=== PATIENT | female | born 1980 | race Caucasian/White ===

== ENCOUNTER 2020-07-03 10:09 | Day surgery (SDC) | payer BC, SELFPAY ==
[2020-06-26 17:28] LABS: BASOPHILS # (AUTO) 0.1 K/uL (0.0-0.2); BASOPHILS % (AUTO) 0.8 % (0.0-2.0); EOSINOPHILS # (AUTO) 0.1 K/uL (0.0-0.4); EOSINOPHILS % (AUTO) 1.4 % (0.0-4.0); HEMATOCRIT 33.3 % (36-48); HEMOGLOBIN 10.3 g/dL (12.0-16.0); LYMPHOCYTES % (AUTO) 25.6 % (20.5-51.5); MEAN CORPUSCULAR HEMOGLOBIN 25 pg (27-31); MEAN CORPUSCULAR HGB CONC 31 % (32-36); MEAN CORPUSCULAR VOLUME 81 fL (79.0-98.0); MONOCYTES # (AUTO) 0.7 K/uL (0.0-1.0); MONOCYTES % (AUTO) 9.2 % (1.7-9.3); PLATELET COUNT (AUTO) 379 K/uL (130-430); RED BLOOD CELL COUNT(AUTO) 4.09 MIL/uL (4.2-6.2); RED CELL DISTRIBUTION WIDTH 19.6 % (9.0-15.0)
[2020-06-26 17:46] LABS: BILIRUBIN,URINE 1+ (NEGATIVE); BLOOD, URINE NEGATIVE (NEGATIVE); COLOR,URINE YELLOW (YELLOW); GLUCOSE,URINE NEGATIVE (NEGATIVE); KETONES,URINE TRACE (NEGATIVE); LEUKOCYTE ESTERASE ,URINE NEGATIVE (NEGATIVE); NITRITE, URINE NEGATIVE (NEGATIVE); PROTEIN URINE NEGATIVE (NEGATIVE); UROBILINOGEN,URINE 0.2 (0.2-1.0)
[2020-06-26 18:06] LABS: CLARITY/URINE SLIGHTLY HAZY (CLEAR)
[~2020-07-03] VITALS: Ht 157.5 cm; Wt 72.6 kg
[2020-07-03 10:37] LABS: HCG,QUAL RESULT NEGATIVE (NEGATIVE)
[2020-07-03] MEDS ORDERED: HYDROmorphone 1 MG INJ. 1 MG/ML AMPUL IVP PRN ×2 (12:00)
[2020-07-03] MEDS ORDERED: ONDANSETRON HCL 4 MG/2 ML VIAL IVP PRN (12:00)
[2020-07-03] MEDS ORDERED: HYDROmorphone 2 MG/ML VIAL ONE (12:29)
[2020-07-03] MEDS ORDERED: LR 1,000 ML IV.SOLN IV ONE (12:29)
[2020-07-03] MEDS ORDERED: KETOROLAC TROMETHAMINE 30 MG VIAL ONE (12:29)
[2020-07-03] MEDS ORDERED: ONDANSETRON HCL 4 MG/2 ML VIAL ONE (12:29)
[2020-07-03] MEDS ORDERED: DESFLURANE 15 MIN GAS INH ONE (12:29)
[2020-07-03] MEDS ORDERED: DEXAMETHASONE SOD PHOSPHATE 4 MG/ML VIAL ONE (12:29)
[2020-07-03] MEDS ORDERED: PROPOFOL 200MG/ 20ML VIAL (DIPRIVAN) IV ONE (12:29)
[2020-07-03] MEDS ORDERED: NS IRRIG SOLN 1000 ML IR ONE (12:29)
[2020-07-03] MEDS ORDERED: fentaNYL CITRATE/PF 100 MCG/2 ML AMP ONE (12:29)
[2020-07-03] MEDS ORDERED: NS IRRIG SOLN 5000 ML IR ONE (12:29)
[2020-07-03] MEDS ORDERED: HYDROmorphone 1 MG INJ. 1 MG/ML AMPUL ONE (13:05)
[2020-07-03 13:13] VITALS: BP_SYST 114
== END 2020-07-03 14:24 | disposition home or self-care (01) ==
LOC: SDS 10:09 → SMU 10:12 → SDS 14:24
PROVIDERS: ATTEND Orthopaedic Surgery
DX: M23.251 Derangement of posterior horn of lateral meniscus due to old tear or injury, right knee (principal); M22.41 Chondromalacia patellae, right knee; Z98.84 Bariatric surgery status; M17.11 Unilateral primary osteoarthritis, right knee; Z28.3 Underimmunization status; Z79.899 Other long term (current) drug therapy; Z20.828 Contact with and (suspected) exposure to other viral communicable diseases
CPT/HCPCS: 29881; 36415; 81003; 84702; 84703; 85025; J1100; J1170 ×2; J1885; J2405; J2704; J3010; J7120; U0003